=== PATIENT | female | born 1955 ===

== ENCOUNTER 2023-05-03 10:10 | Outpatient (AMB) | payer MEDICARE, OTHER, SELFPAY ==
--- NOTE | 2023-05-03 10:26 | MHC.OFFWIV ---
Intake Vital Signs 05/03/23 10:30 Weight 181 lb BP 118/72 Blood Pressure Location Lt brachial Position Sitting Respiration 16 Pulse 90 Pulse Source Pulse Oximeter Temp 98.2 F Temp Source Oral Pulse Oximetry (%) 97 Oxygen Delivery Method Room Air Intake Visit Reasons: ? UTI Intake Note: Patient is here today with symptoms of UTI with pressure and frequency. Patient Tobacco Use Status: Former Tobacco user Allergies No Known Allergies Allergy (Verified 05/03/23 10:35) Medication List - Last Reconciled 05/03/23 by Hima Nieto CNP albuterol sulfate mg inhalation Q4-6H PRN amlodipine 5 mg PO DAILY clopidogrel 75 mg PO DAILY fluticasone propionate 50 mcg/actuation 0 mcg intranasal metoprolol succinate ER 50 mg PO DAILY nortriptyline 25 mg PO BID omeprazole 20 mg PO DAILY rosuvastatin 40 mg PO DAILY Do you need a note to return to daycare/school/sports/work: No HPI HPI Comments History of Present Illness Details 68 y/o female presents with c/o suprapubic pressure at the initiation and end of urine stream, frequent urination, and fatigue. She notes her symptoms have been ongoing for the past 5-6 days. She took OTC Azo without improvement. She denies hematuria, dysuria, or distarge with urination. She denies abdominal pain, nausea, vomiting, or diarrhea. She denies fever, chills, body aches, or weakness. [facility] Social History Patient Tobacco Use Status: Former Tobacco user Review of Systems Const Details: Const Denies chills, Denies fatigue, Denies fever(s), Denies headache(s) and Denies weakness ENT Denies change in vision, Denies dizziness, Denies headache(s), Denies hearing loss, Denies nasal congestion, Denies sinus pain, Denies sinus pressure and Denies sore throat Resp Denies cough, Denies dyspnea, Denies wheezing and Denies other (shortness of breath) Cardio Denies chest pain, Denies lightheadedness, Denies dyspnea and Denies other (palpitations) GI Reports as per HPI Reports as per HPI Neuro Denies dizziness, Denies headache(s), Denies numbness, Denies tingling and Denies weakness Psych Denies anxiety, Denies depression, Denies memory?loss Endo Denies fatigue Aller/Immun Denies wheezing Physical Exam Const Other: Const General: well developed; No acute distress Nutritional Appearance: well nourished Orientation/consciousness: patient oriented x3 HEENT Head: Yes normocephalic and Yes atraumatic Eyes General: appearance normal, both eyes and all related structures Pupils: Equal, round and reactive pupils present EOM: EOMs intact bilaterally Resp Effort & Inspection: normal respiratory effort Auscultation: clear to auscultation bilaterally Cardio Rate: regular rate Rhythm: regular rhythm Heart sounds: S1 normal heart sound present, S2 normal heart sound present, no gallops, no murmurs and no rubs Bruits: no abdominal aortic bruits and no carotid bruits GI Abdomen is soft, nontender, nondistended, active bowel sounds x4 No CVA tenderness Neuro General: patient oriented x3 and gait normal, no focal neuro deficit Cranial nerves: Yes Equal, round and reactive pupils present Psych Affect: normal affect Results AMB Urinalysis Dipstick UR Leukocytes Large Last Edit by Hannah Macias CMA on 05/03/23 10:43 UR Nitrite Negative Last Edit by Hannah Macias CMA on 05/03/23 10:43 UR Urobilinogen Normal Last Edit by Hannah Macias CMA on 05/03/23 10:43 UR Protein Trace Last Edit by Hannah Macias CMA on 05/03/23 10:43 UR Ph 6.0 Last Edit by Hannah Macias CMA on 05/03/23 10:43 UR Blood Moderate Last Edit by Hannah Macias CMA on 05/03/23 10:43 UR Specific [place] 1.015 Last Edit by Hannah Macias CMA on 05/03/23 10:43 UR Ketone Negative Last Edit by Hannah Macias CMA on 05/03/23 10:43 UR Bilirubin Negative Last Edit by Hannah Macias CMA on 05/03/23 10:43 UR Glucose Negative Last Edit by Hannah Macias CMA on 05/03/23 10:43 Assessment & Plan Assessment & Plan (1) UTI (urinary tract infection): Code(s): N39.0 - Urinary tract infection, site not specified Plan: 68 y/o female presents with c/o suprapubic pressure at the initiation and end of urine stream, frequent urination, and fatigue. She notes her symptoms have been ongoing for the past 5-6 days. Urinalysis is positive for leukocytes and RBCs, negative for nitrites Possibly UTI Bactrim ordered. Take as prescribed May take Tylenol ibuprofen for pain or discomfort Adequate hydration encouraged Will send urine to the lab for UA/culture Follow-up with new or worsening symptoms Verbalized understanding and agreed with treatment plan. Orders: Orders AMB Urinalysis Dipstick Today Z13.9 - Encounter for screening, unspecified UA CC w/rflx Micro + Cult Today N39.0 - Urinary tract infection, site not specified AMB Urinalysis Dipstick Today R30.0 - Dysuria Medications: New sulfamethoxazole-trimethoprim 800-160 mg (Bactrim DS) 1 tab PO BID 10 tabs 0RF 5 days Coding Level of Care Code New Pt Level 2 (13783) Diagnoses UTI (urinary tract infection) N39.0
[2023-05-03 10:30] VITALS: BP 118/72; PULSE 90; RESP 16; TEMP 36.8; O2SAT 97
== END 2023-05-03 10:48 | disposition home or self-care (01) ==
PROVIDERS: Visit Provider Nurse Practitioner Family
DX: R30.0 Dysuria (principal); N39.0 Urinary tract infection, site not specified
CPT/HCPCS: 81002; 99202

== ENCOUNTER 2023-05-03 11:21 | Outpatient (REF) | payer MEDICARE, OTHER, SELFPAY ==
[2023-05-03 14:57] LABS: Appearance Urine Turbid; Color Urine Yellow; Glucose Urine UA Negative (Negative); Leukocyte Esterase Urine Large (3+) (Negative); Nitrite Urine Negative (Negative); Specific Gravity - Urine 1.015 (1.005-1.025); UMIC TRIGGER UACC YES; Urine Blood Small (1+) (Negative); Urine Ketones Negative (Negative); Urine Protein 100 (2+) mg/dL (Neg-Trace)
[2023-05-03 15:10] LABS: Bacteria Urine 2+ (None Seen); Hyaline Casts Urine 0-2 /LPF (0-2); Renal Epithelial Cells Urine Present; Transitional Epi Cells Urine Present; UACC Culture Trigger YES; WBC Urine >50 /HPF (0-5)
== END 2023-05-03 11:22 | disposition home or self-care (01) ==
LOC: HO.LAB 11:21
PROVIDERS: Visit Provider Nurse Practitioner Family
DX: N39.0 Urinary tract infection, site not specified (principal)
CPT/HCPCS: 81001; 81003; 87086